=== PATIENT | female | born 1965 | race Two or more races ===

== ENCOUNTER 2024-06-14 15:52 | Emergency (ER) | payer OTHER ==
[~2024-06-14] VITALS: Ht 152.4 cm; Wt 65.8 kg
[~2024-06-14 15:52] MED LIST: CEFADROXIL500 MG PO; KETO10TA2 PO
[2024-06-14] MEDS ORDERED: METHYLPREDNISOLONE SOD SUCC 125 MG VIAL IM STA (16:58)
== END 2024-06-14 17:15 | disposition home or self-care (01) ==
LOC: ER 15:53
DX: L30.9 Dermatitis, unspecified (principal)